=== PATIENT | male | born 2000 | race Caucasian/White ===

== ENCOUNTER 2020-06-19 06:50 | Outpatient (NON) | payer BC, SELFPAY ==
[2020-06-19 19:12] LABS: SARS-CoV-2 RNA PCR Negative
== END 2020-06-19 06:51 ==
LOC: ANHCOVIDDT 06:58
PROVIDERS: PCP Family Medicine; Visit Provider Family Medicine
DX: Z20.828 Contact with and (suspected) exposure to other viral communicable diseases (principal)
CPT/HCPCS: 87635; C9803; U0003

== ENCOUNTER 2022-08-20 08:50 | Emergency (ER) | payer BC, SELFPAY ==
--- NOTE | ~2022-08-20 | CT_ITS ---
EXAMINATION: CT abdomen pelvis w con DATE: 08/20/2022 10:19 INDICATION: Lower quadrant abdominal pain, nausea and vomiting. TECHNIQUE: Computed tomography (CT) of the abdomen and pelvis was performed with 100 mL Omnipaque-350 intravenous contrast. Automated exposure control and iterative reconstruction technique were employe d. The dose-length product was 198.04 mGy-cm. COMPARISON: None FINDINGS: Lung bases are clear. Heart size is normal. No pericardial or pleural effusion. Mild periportal edema . Gallbladder, spleen, pancreas, bilateral adrenal glands and right kidney are normal. 2-3 mm at leas t partially obstructing stone at the left ureterovesicular junction with mild left hydroureteronephro sis and delayed left nephrogram. Decompressed bladder is normal. Bowels are unremarkable with no obst ruction. The appendix is not visualized. No pericecal inflammatory change to suggest acute appendicit is. Mild thoracolumbar dextrocurvature. A few small bulla mild at the right femoral head. IMPRESSION: 1. At least partially obstructing 2-3 mm stone at the left ureterovesicular junction with mild left h ydronephrosis. 2. Nonspecific mild periportal edema which can be seen with urinary tract infection/acute pyelonephri tis with differential also including congestive heart failure, acute hepatitis, cholangitis or aggres sive fluid resuscitation. Correlate with urinalysis. Reviewed, dictated and finalized at location A. [employer] IMPRESSION: 1. At least partially obstructing 2-3 mm stone at the left ureterovesicular faviola ction with mild left hydronephrosis. 2. Nonspecific mild periportal edema which can be seen with urinary tract infec tion/acute pyelonephritis with differential also including congestive heart harvinder lure, acute hepatitis, cholangitis or aggressive fluid resuscitation. Correlate with urinalysis.
--- NOTE | ~2022-08-20 | XR_ITS ---
EXAMINATION: XR abdomen/kub 1V DATE: 08/20/2022 11:24 INDICATION: 2 mm stone at the left ureterovesicular junction. TECHNIQUE: A supine view of the abdomen and pelvis was obtained. COMPARISON: CT dated 08/20/2022 and chest radiograph dated 06/16/2014 FINDINGS: Excreted contrast seen in the bilateral renal collecting systems and ureters. Mild left hydronephrosi s. The previously noted likely at least partially obstructing stone at the left ureterovesicular junc tions unable be visualized due to the excreted contrast in the ureters and bladder. Normal bowel gas pattern. The right-sided T12 rib is small and there are 4 more caudal nonrib-bearing lumbar segments. IMPRESSION: 1. Mild left hydronephrosis. The stone previously seen at the left ureterovesicular junction is obscu red by the excreted contrast. Reviewed, dictated and finalized at location A. [facility] IMPRESSION: 1. Mild left hydronephrosis. The stone previously seen at the left ureterovesic ular junction is obscured by the excreted contrast.
[2022-08-20 09:13] VITALS: BP 142/108; PULSE 82; RESP 20; TEMP 37; O2SAT 100
[2022-08-20] MEDS: SODIUM CHLORIDE 0.9% IV 1,000 ML 999 ML IV CONT (09:38)
[2022-08-20] MEDS: ONDANSETRON INJ 4 MG/2 ML VIAL IV PUSH (09:40)
[2022-08-20 09:41] LABS: Add Urine Microscopic? YES; Appearance Urine Clear (Clear); Basophils Absolute Auto 0.1 K/mm3 (0.0-0.1); Basophils Percent Auto 0.4 % (0.2-1.2); Bilirubin Urine Negative (Negative); Blood Urine 3+ (Negative); Color Urine Yellow (Yellow); Eosinophils Absolute Auto 0.1 K/mm3 (0-0.3); Eosinophils Percent Auto 0.4 % (0-4.4); Glucose Urine UA 2+ mg/dL (Negative); Hematocrit 40.6 % (42.0-52.0); Hemoglobin 13.5 g/dL (14.0-18.0); Immature Granulocyte Absolute 0.06 K/mm3 (0.00-0.031); Immature Granulocyte Percent A 0.4 % (0-0.5); Ketones Urine Trace mg/dL (Negative); Leukocyte Esterase Ur Negative LEU/UL (Negative); Lymphocytes Absolute Auto 0.99 K/mm3 (0.9-3.2); Lymphocytes Percent Auto 6.4 % (18.3-44.2); Mean Corpuscular HGB Conc 33.3 g/dl (32-36); Mean Corpuscular Hemoglobin 29.3 pg (26-34); Mean Corpuscular Volume 88.1 fl (80-100); Mean Platelet Volume 10.5 fl (7.4-10.4); Monocytes Absolute Auto 0.5 K/mm3 (0.1-0.6); Monocytes Percent Auto 3.5 % (2.6-8.5); Neutrophils Absolute Auto 13.9 K/mm3 (1.3-6.7); Neutrophils Percent Auto 88.9 % (45.5-73.1); Nitrate Urine Negative (Negative); Platelet Count Result 214 k/mm3 (150-375); Protein Urine Trace mg/dL (Negative); Red Blood Count 4.61 M/mm3 (4.6-6.20); Red Cell Distribution Width 12.5 % (11.5-14.5); Specific Grav Ur >= 1.030 (1.001-1.035); Urobilinogen Urine 0.2 mg/dL (<2.0); White Blood Count 15.6 K/mm3 (4.5-10.0); pH Urine 5.5 (5.0-9.0)
[2022-08-20] MEDS: MORPHINE SULFATE (*CRX) 4 MG/ML INJ IV PUSH (09:41)
--- NOTE | 2022-08-20 09:46 | ED.ABDPAIN ---
HPI - Abdominal Pain General Chief Complaint: Abdominal Pain Stated Complaint: abd pain Time Seen by Provider: 08/20/22 09:09 Source: patient Mode of arrival: ambulatory Limitations: no limitations History of Present Illness HPI narrative: Patient is a 22-year-old male who presents the ED with report of abdominal pain. Patient reports he suddenly developed pain in his left lower quadrant abdomen about 3 hours ago while at home. Pain has been persistent since then. He has not tried anything for the pain. States pain is aggravated with sitting upright. Denies radiation of pain to back, testicles, or groin. Denies history of previous similar pain. Denies history of diverticulitis or kidney stones. He did report having N/V this morning and mild difficulty urinating this morning, denied any dysuria or hematuria. Denies diarrhea, constipation, fevers, cough or cold symptoms. Related Data Allergies Allergy/AdvReac Type Severity Reaction Status Date / Time cefprozil Allergy Unknown Hives Verified 08/20/22 09:23 Review of Systems Review of Systems: CONSTITUTIONAL: Denies fever, chills, or sweats. ENT: Denies rhinorrhea, congestion, sore throat. CARDIOVASCULAR: Denies chest pain. RESPIRATORY: Denies dyspnea. GASTROINTESTINAL: Reports LLQ pain, N/V. Denies constipation, diarrhea. GENITOURINARY: Reports difficulty urinating. Denies testicular pain or swelling, dysuria, or hematuria. SKIN: Denies rash or itching. MUSCULOSKELETAL: Denies back pain. All systems reviewed & are unremarkable except as noted in HPI and below PMFSH Past Medical History Medical History No pertinent past medical history Surgical History Surgical History No pertinent past surgical history Social History Social History Smoking status: Never smoker Alcohol intake: never Exam Narrative: GENERAL: Uncomfortable appearing, thin, non-toxic, in mild acute distress due to pain. Unable to sit still in ED bed. HEAD: Normocephalic, atraumatic. NECK: Supple. No adenopathy, no masses. RESPIRATORY: Airway patent, respirations nonlabored. Clear to auscultation bilaterally, no rales, rhonchi, wheezing. CARDIOVASCULAR: Regular rate and rhythm without murmurs, rubs, or gallops. Peripheral pulses 2+ and equal bilaterally. ABDOMINAL: Soft, tenderness throughout LLQ, suprapubic/lower abd, nondistended, no hepatosplenomegaly. Normoactive BS. No significant CVA tenderness to percussion. MUSCULOSKELETAL: Moves all extremities. Strength/ROM intact without gross deformities. SKIN: Warm, dry, mild pallor. No rashes. NEURO: A&O X3. Speech clear. Cranial nerves II-XII grossly intact. Steady gait. No ataxic movements. PSYCHIATRIC: Appropriate mood and affect. Normal interaction. Course Consultations Consultation #1: Discussed case with Dr. Austin, Urology, who looked at labs and imaging himself. Advised patient's stone is very close to passing, feels white blood cells in urine may be reactive and inflammatory. Recommended antibiotics x7 days and d/c with pain/nausea meds/Flomax, but do not feel patient needs inpatient evaluation at this time as he is otherwise stable, afebrile, pain controlled. Date: 08/20/22 Vital Signs Vital signs: Vital Signs Temperature 98.6 F 08/20/22 09:13 Pulse Rate 82 08/20/22 09:13 Respiratory Rate 20 08/20/22 09:13 Blood Pressure 142/108 H 08/20/22 09:13 Pulse Oximetry 100 08/20/22 09:13 Oxygen Delivery Room Air 08/20/22 09:13 Temperature 98.6 F 08/20/22 09:13 Pulse Rate 66 08/20/22 10:02 Respiratory Rate 18 08/20/22 10:02 Blood Pressure 114/62 08/20/22 10:02 Pulse Oximetry 100 08/20/22 10:02 Oxygen Delivery Room Air 08/20/22 09:13 MDM - Abdominal Pain MDM Narrative Medical decision making narrative: Patient presented t
[2022-08-20 09:48] LABS: Mucus Urine Heavy /lpf; RBC Urine >75 /hpf (0-2); Squamous Epithelial Cell Urine Occasional /hpf (Few)
[2022-08-20 09:50] LABS: Alanine Aminotransferase 18 U/L (6-50); Albumin Level 4.7 g/dL (3.5-5.1); Alkaline Phosphatase 69 U/L (38-126); Anion Gap 13 mmol/L (8-16); Aspartate Amino Transferase 23 U/L (17-59); Bilirubin,Total 0.4 mg/dL (0.2-1.3); Blood Urea Nitrogen 14 mg/dL (9-20); Calcium 8.8 mg/dL (8.4-10.2); Carbon Dioxide 22 mmol/L (22-30); Chloride 105 mmol/L (98-107); Estimated CRCL calculation 96 ml/min; Estimated Glomerular Filt Rate > 60; Glucose 233 mg/dL (65-110); Lipase 116 U/L (23-300); Sodium 140 mmol/L (137-145)
[2022-08-20 10:02] VITALS: BP 114/62; PULSE 66; RESP 18; O2SAT 100
[2022-08-20] MEDS: HYDROmorphone HCL INJ (*CRX) 1 MG/ML SYR 0.5 MG IV PUSH (10:07)
[2022-08-20 11:28] LABS: Hemoglobin A1C 5.3 % (<5.7)
[2022-08-20] MEDS: CIPROFLOXACIN 500 MG TAB PO (12:19)
[2022-08-20] MEDS: TAMSULOSIN HCL 0.4 MG CAPSULE PO (12:19)
[2022-08-20 12:20] VITALS: BP 114/62; PULSE 72; RESP 18; O2SAT 99
[2022-08-20] MEDS: POTASSIUM CHLORIDE 20 MEQ PACKET (FOR LIQUID) 40 MEQ PO (12:20)
== END 2022-08-20 12:20 | disposition home or self-care (01) ==
PROVIDERS: Emergency Provider Physician Assistant; PCP Family Medicine
DX: N13.2 Hydronephrosis with renal and ureteral calculous obstruction (principal); R82.90 Unspecified abnormal findings in urine; E87.6 Hypokalemia; R73.9 Hyperglycemia, unspecified
CPT/HCPCS: 36415; 74018; 74177; 80053; 81001; 83036; 83690; 85025; 87086; 96361; 96374; 96375; 99284; A9270; J1170; J2270; J2405; J7030; Q9967

== ENCOUNTER 2023-03-08 16:44 | Emergency (ER) | payer BC, SELFPAY ==
[2023-03-08 16:55] VITALS: BP 127/65; PULSE 85; RESP 18; TEMP 36.9; O2SAT 100
--- NOTE | 2023-03-08 16:55 | ED.SKABFB ---
HPI - Skin/Abscess/Foreign Bdy General Chief complaint: Skin/Abscess/Foreign Body Stated complaint: rash Time Seen by Provider: 03/08/23 16:56 Source: patient, RN notes reviewed and old records reviewed Mode of arrival: ambulatory Limitations: no limitations History of Present Illness HPI narrative: 22-year-old male presents to the [facility] with complaints a rash to his bilateral wrists, groin, waist band area for the last 4-5 days. States it is worse at night. Patient describes it as being very itchy. No treatment prior to arrival Denies any itching or pain currently. Rash is only to the anterior waist, groin and bilateral wrists Onset (ago): day(s) (4-5) Related Data Allergies Allergy/AdvReac Type Severity Reaction Status Date / Time cefprozil Allergy Unknown Hives Verified 03/08/23 16:55 Review of Systems Review of Systems: All systems reviewed & are unremarkable except as noted in HPI and below Constitutional: Constitutional: Reports no additional constitutional complaints Eyes: Eyes: Reports no additional eye complaints ENT: Reports system reviewed and no additional complaints, except as documented Cardiovascular: Cardiovascular: Reports no additional cardiovascular complaints, Denies chest pain and Denies dyspnea Respiratory: Respiratory: Reports no additional respiratory complaints, Denies chest congestion, Denies cough and Denies dyspnea Gastrointestinal: Gastrointestinal: Reports no additional gastrointestinal complaints, Denies abdominal pain, Denies nausea and Denies vomiting Musculoskeletal: Musculoskeletal: Reports no additional musculoskeletal complaints Integumentary/Breasts: Skin/Breast: Reports as per HPI Neurologic: Reports system reviewed and no additional complaints, except as documented Psychiatric: Psychiatric: Reports no additional psychiatric complaints Allergic/Immunologic: Allergic/Immunologic: Reports no additional allergic/immunologic complaints [facility] Past Medical History Medical History No pertinent past medical history Surgical History Surgical History No pertinent past surgical history Social History Social History Smoking status: Never smoker Alcohol intake: never Comments At the time of my signature, I reviewed and agree with the nursing past medical, surgical, social, and family history. There is no relevant family history pertinent to the patient complaint. Exam Const: General: cooperative, healthy appearing, comfortable, no acute distress, well developed, alert and well nourished Nutritional Appearance: well nourished Orientation/consciousness: patient oriented x3 Limitations: no limitations HENMT: Head: normal to inspection Ears: hearing grossly normal bilaterally and external ears normal Face/Nose/Sinus: Normal external nose present, Normal nares present, Normal nasal mucous membranes and turbinates present and normal facial exam Face and sinus: normal facial exam Mouth: Yes Normal oral and palatal mucosa present, Yes lip normal and Yes moist mucous membranes Throat: posterior oropharynx normal and uvula midline Eyes: General: appearance normal, both eyes and all related structures Alignment and Position: alignment normal Periorbital: periorbital findings normal Pupils: Equal, round and reactive pupils present EOM: EOMs intact bilaterally Neck: Neck: normal visual inspection, full ROM, no lymphadenopathy and no meningeal signs Chest: Chest palpation & inspection: normal inspection of the chest Resp: Effort & Inspection: normal respiratory effort and able to speak in complete sentences Auscultation: clear to auscultation bilaterally, no crackles, no rales, no rhonchi and no wheezes Cardio: Rate: regular rate Rhythm: regular rhythm Back/Spine/Pelvis: Cervical Spine: cervical ROM normal Thora
[2023-03-08 16:56] VITALS: BP 127/65; PULSE 85; RESP 18; TEMP 36.9; O2SAT 100
== END 2023-03-08 17:07 | disposition home or self-care (01) ==
PROVIDERS: Emergency Provider Nurse Practitioner; PCP Family Medicine
DX: L50.9 Urticaria, unspecified (principal); B86 Scabies
CPT/HCPCS: 99213; G0463

== ENCOUNTER 2024-08-23 12:27 | Emergency (ER) | payer BC, SELFPAY ==
--- NOTE | 2024-08-23 12:31 | ED.GENADULT ---
HPI - General Adult General Chief complaint: Skin/Abscess/Foreign Body Stated complaint: Bite Left Thumb Time Seen by Provider: 08/23/24 13:00 Source: patient, RN notes reviewed and old records reviewed Mode of arrival: ambulatory Limitations: no limitations History of Present Illness HPI narrative: 24-year-old male presents to the [facility] with a cap by to the left thumb that occurred on hour prior to arrival Related Data Allergies Allergy/AdvReac Type Severity Reaction Status Date / Time cefprozil Allergy Mild Hives Verified 08/23/24 12:37 Review of Systems Review of Systems: All systems reviewed & are unremarkable except as noted in HPI and below Constitutional: Constitutional: Reports no additional constitutional complaints ENT: Reports system reviewed and no additional complaints, except as documented Cardiovascular: Cardiovascular: Reports no additional cardiovascular complaints, Denies chest pain and Denies dyspnea Respiratory: Respiratory: Reports no additional respiratory complaints, Denies chest congestion, Denies cough and Denies dyspnea Musculoskeletal: Musculoskeletal: Reports no additional musculoskeletal complaints Integumentary/Breasts: Skin/Breast: Reports as per HPI [facility] Past Medical History Medical History No pertinent past medical history Surgical History Surgical History No pertinent past surgical history Social History Social History Smoking status: Never smoker Alcohol intake: never Comments At the time of my signature, I reviewed and agree with the nursing past medical, surgical, social, and family history. There is no relevant family history pertinent to the patient complaint. Exam Const: General: cooperative, healthy appearing, comfortable, no acute distress, well developed, alert and well nourished Nutritional Appearance: well nourished Orientation/consciousness: patient oriented x3 Limitations: no limitations HENMT: Head: normal to inspection Eyes: General: appearance normal, both eyes and all related structures Alignment and Position: alignment normal Neck: Neck: normal visual inspection, full ROM, no lymphadenopathy and no meningeal signs Chest: Chest palpation & inspection: normal inspection of the chest Resp: Effort & Inspection: normal respiratory effort and able to speak in complete sentences Cardio: Rate: regular rate Skin: General skin exam: normal color and no rashes or lesions noted Wounds: no wounds Other: Cat bite to the left thumb, corner of distal finger, nail. Bleeding is controlled. No drainage. Area cleaned with wound cleanser and saline and then also cleaned with Betadine. Neuro: General: patient oriented x3, gait normal, moves all extremities and no meningeal signs Cognition (Neuro): normal cognition Speech: normal speech Gait exam (Neuro): Normal gait present Extrem: General: normal to inspection, full ROM, capillary refill normal and normal gait Psych: Appearance: grossly normal and well kempt Mental Status: mental status grossly normal Speech and movement: Normal speech and movement present and Clear speech present Affect: normal affect Attitude: cooperative Course Course Level of Care: Express Care Visit Vital Signs Vital signs: Vital Signs Temperature 97.5 F L 08/23/24 12:36 Pulse Rate 61 08/23/24 12:36 Respiratory Rate 18 08/23/24 12:36 Blood Pressure 112/59 L 08/23/24 12:36 Pulse Oximetry 100 08/23/24 12:36 Oxygen Delivery Room Air 08/23/24 12:36 Temperature 97.5 F L 08/23/24 12:36 Pulse Rate 61 08/23/24 12:36 Respiratory Rate 18 08/23/24 12:36 Blood Pressure 112/59 L 08/23/24 12:36 Pulse Oximetry 100 08/23/24 12:36 Oxygen Delivery Room Air 08/23/24 12:36 Reviewed Medical Decision Making MDM Narrative Medical decision making narrative: Patient sitting comfortably in exam room. Nontoxic, vitals stable. Patient in no acute distress Patient presents for cat bite. Unknown last Tdap. Tdap updated. Area cleaned with wound cleanser and Betadine. Bleeding is controlled. Patient is appropriate for outpatient treatment with antibiotics and close follow-up Discharge instructions reviewed with patient, as well as provided in writing per nursing staff. The instructions also include specific and strict return/GO TO THE ER as well as f/u information. All questions have been answered, and the patient deny any further questions with discharge and discharge plan. Some parts of this dictation were generated by voice recognition software and may contain typographical and/or grammatical inaccuracies. Differential Diagnosis Differential Diagnosis: Cat bite Medical Records Medical records reviewed: Yes I reviewed the external patient's medical records. Vital Signs Vital Signs: Vital Signs Temperature 97.5 F L 08/23/24 12:36 Pulse Rate 61 08/23/24 12:36 Respiratory Rate 18 08/23/24 12:36 Blood Pressure 112/59 L 08/23/24 12:36 Pulse Oximetry 100 08/23/24 12:36 Oxygen Delivery Room Air 08/23/24 12:36 Temperature 97.5 F L 08/23/24 12:36 Pulse Rate 61 08/23/24 12:36 Respiratory Rate 18 08/23/24 12:36 Blood Pressure 112/59 L 08/23/24 12:36 Pulse Oximetry 100 08/23/24 12:36 Oxygen Delivery Room Air 08/23/24 12:36 Reviewed Lab Data Lab results reviewed: Yes I reviewed the patient's lab results. Labs: Reviewed Critical Care Time Critical Care Time Critical Care Time: No Discharge Plan Discharge Clinical Impression: Cat bite of left thumb, Vaccine for [id number], combined Patient Disposition: Home, Self-Care Condition: Stable Instructions: Antibiotic Form, Animal Bite (ED) Additional Instructions: Soaks 2 to 3 times a day for 15-20 minutes in warm soapy water and Epson salt. Be sure to use an antibacterial soap such as Dial. Keep area clean and dry. Wear bandage when around other people. Take Motrin alternating with Tylenol as needed for pain. Ice and elevate every 2-3 hours for 15-20 minutes while awake Follow-up with primary care provider this week for for a wound check. For new or worsening symptoms go directly to the emergency room Patient Language: Slovak Prescriptions: New amoxicillin-pot clavulanate 875-125 mg tablet 1 tablet PO Q12H Qty: 20 0RF No Action triamcinolone acetonide 0.5 % ointment 1 applic topical BID Qty: 15 1RF Follow-up/Referrals: Herminio Taveras MD [Primary Care Provider] - 1 Week ([facility] follow-up, wound check) Stand Alone Forms: Work/School Release IP Time of Disposition: 13:31
[2024-08-23 12:36] VITALS: BP 112/59; PULSE 61; RESP 18; TEMP 36.4; O2SAT 100
[2024-08-23] MEDS: TETANUS,DIPHTHERIA,AC PERTUSSIS ADULT (0.5 ML) BOOSTRIX IM (12:56)
== END 2024-08-23 13:33 | disposition home or self-care (01) ==
PROVIDERS: Emergency Provider Nurse Practitioner; PCP Family Medicine
DX: S61.152A Open bite of left thumb with damage to nail, initial encounter (principal); W55.01XA Bitten by cat, initial encounter; Z23 Encounter for immunization
CPT/HCPCS: 90471; 90715; 99213; G0463

== ENCOUNTER 2025-03-13 16:06 | Emergency (ER) | payer SELFPAY ==
--- NOTE | ~2025-03-13 | XR_ITS ---
XR finger 3rd RT min 2V Ordering provider: Malorie Babb PA-C History: . distal amputation VIA [employer] . Comparison: None. FINDINGS: BONES: Amputation of the tip of the distal phalanx of the middle finger with loss of adjacent soft ti ssues. JOINT SPACES: Normal. IMPRESSION: Amputation of the tip of the distal phalanx of the middle finger with loss of soft tissues in the medina e. Reviewed, dictated and finalized at location A. IMPRESSION: Amputation of the tip of the distal phalanx of the middle finger with loss of s oft tissues in the same.
--- NOTE | 2025-03-13 16:16 | ED.WOUNDLAC ---
HPI - Wound/Laceration General Chief Complaint: Wound/Laceration Stated Complaint: R middle finger tip cut off Time Seen by Provider: 03/13/25 16:10 Focused HPI: Patient is a 24 y/o male who presents to the ED with c/o amputation of R 3rd digit. Patient was mowing the lawn and placed his hand under the oceanography teacher when he thought the mower was off. He sustained amputation to distal end of R 3rd digit. He was unable to find the other part of his finger. Reports feeling lightheaded currently. Tetanus UTD. GENERAL: Well-appearing, well-nourished, and in no acute distress. HEAD: Normocephalic, atraumatic. CHEST: Clear to auscultation. ?No respiratory distress. HEART: Regular rate and rhythm.? MSK: Traumatic amputation to R 3rd digit, middle of nail plate. Does not extend past DIP. No significant active bleeding. Sensation intact. NEURO: ?Alert and oriented x3. Patient screened in triage and initial orders placed.? ?Additional care and disposition to be based upon?diagnostic testing and treatment. Source: patient Mode of arrival: ambulatory Limitations: no limitations Related Data Allergies Allergy/AdvReac Type Severity Reaction Status Date / Time cefprozil Allergy Mild Hives Verified 08/23/24 12:37 [facility] Past Medical History Medical History No pertinent past medical history Surgical History Surgical History No pertinent past surgical history Social History Social History Smoking status: Never smoker Alcohol intake: never MDM - Wound/Laceration MDM Narrative Medical decision making narrative: MSE by GET in triage. Discharge Plan Discharge Clinical Impression: Partial traumatic amputation of finger through phalanx Patient Disposition: Acute Care Hospital Condition: Stable Additional Instructions: Please report directly to [facility] emergency department for evaluation by their hand specialist. [facility] Emergency department [address] [place] [address] Patient Language: Burkinan Prescriptions: No Action amoxicillin-pot clavulanate 875-125 mg tablet 1 tablet PO Q12H Qty: 20 0RF triamcinolone acetonide 0.5 % ointment 1 applic topical BID Qty: 15 1RF Follow-up/Referrals: Herminio Taveras MD [Primary Care Provider] -
[2025-03-13] MEDS: HYDROcodone/acetaminophen (*CRX) 5-325 MG TABLET 1 TAB PO (16:17)
[2025-03-13] MEDS: CLINDAMYCIN HCL 150 MG CAP 450 MG PO ×2 (16:19→18:52)
[2025-03-13] MEDS: KETOROLAC (*BKC) 60 MG/2 ML VIAL IM (17:37)
[2025-03-13] MEDS: oxyCODONE HCL (*CRX) 5 MG TAB IR PO (17:37)
--- NOTE | 2025-03-13 18:01 | ED.GENADULT ---
HPI - General Adult General Chief complaint: Wound/Laceration Stated complaint: R middle finger tip cut off Time Seen by Provider: 03/13/25 16:10 Source: patient Mode of arrival: ambulatory Limitations: no limitations History of Present Illness HPI narrative: This is a 24-year-old male presenting with a finger injury. He was mowing his lawn when his lung more got jammed with grass. He attempted to remove the grass and the lawnmower reactivated taking off the tip of his middle finger on his right hand. No other injuries. Related Data Allergies Allergy/AdvReac Type Severity Reaction Status Date / Time cefprozil Allergy Mild Hives Verified 08/23/24 12:37 [facility] Past Medical History Medical History No pertinent past medical history Surgical History Surgical History No pertinent past surgical history Social History Social History Smoking status: Never smoker Alcohol intake: never Exam Narrative: APPEARANCE: No apparent distress. Head: atraumatic. EYES: EOMI, NOSE: Atraumatic NECK: Trachea midline RESPIRATORY: No increased rate of breathing CARDIOVASCULAR: RRR, ABDOMINAL: Non-distended MUSCULOSKELETAl: Focal exam of the right hand showed a a partial amputation of the distal phalanx on the 3rd digit. NEURO: Alert. Moving 4/4 extremities SKIN:: Warm, dry. Normal color PSYCHIATRIC: Normal affect Medical Decision Making MDM Narrative Medical decision making narrative: -Course: 24-year-old male presenting with partial amputation distal phalanx. Confirmed on x-ray Patient given clindamycin due to Ancef allergy. Given a Tdap booster and pain control. We do not have Hand/plastics on-call this weekend. Patient accepted by Dr. Aleman in the [facility] ED. Patient will go via private vehicle. Discharge Plan Discharge Clinical Impression: Partial traumatic amputation of finger through phalanx Patient Disposition: Acute Care Hospital Condition: Stable Additional Instructions: Please report directly to [facility] emergency department for evaluation by their hand specialist. [facility] Emergency department [address] [place] [address] [place] [address] Patient Language: Indian Prescriptions: No Action amoxicillin-pot clavulanate 875-125 mg tablet 1 tablet PO Q12H Qty: 20 0RF triamcinolone acetonide 0.5 % ointment 1 applic topical BID Qty: 15 1RF Follow-up/Referrals: Herminio Taveras MD [Primary Care Provider] -
[2025-03-13] MEDS: TETANUS,DIPHTHERIA,AC PERTUSSIS ADULT (0.5 ML) BOOSTRIX IM (18:53)
== END 2025-03-13 19:53 | disposition short-term general hospital (02) ==
PROVIDERS: Emergency Provider Emergency Medicine; PCP Family Medicine
DX: S68.612A Complete traumatic transphalangeal amputation of right middle finger, initial encounter (principal); Z23 Encounter for immunization; W28.XXXA Contact with powered lawn mower, initial encounter
CPT/HCPCS: 73140; 90471; 90715; 96372; 99283; A9270; J1885